=== PATIENT | male | born 1985 | race Caucasian/White ===

== ENCOUNTER 2020-07-27 15:22 | Emergency (ER) | payer OTHER ==
[~2020-07-27] VITALS: Ht 182.9 cm; Wt 113.4 kg
[2020-07-27 16:34] VITALS: BP 126/61
--- NOTE | 2020-07-27 16:34 | NUR ---
COVID SWAB, FLU SWAB DONE.
--- NOTE | 2020-07-27 18:11 | NUR ---
C/O COUGH, SOB, ZIEGLER, CHILLS X 5 DAYS. SON HAD COVID TESTED +.
--- NOTE | 2020-07-27 18:15 | NUR ---
Patient discharged with v/s stable. Written and verbal after care instructions given and explained. Patient alert, oriented and verbalized understanding of instructions. Ambulatory with steady gait. All questions addressed prior to discharge. ID band removed. Patient advised to follow up with PMD. Rx of ZOFRAN, ALBUTEROL & TYLENOL, TESSALON given. Patient educated on indication of medication including possible reaction and side effects. Opportunity to ask questions provided and answered.
[2020-07-27 18:18] VITALS: BP 126/61
--- NOTE | 2020-07-29 13:15 | NUR ---
+ covid result received from lab. Copy given to infection control
== END 2020-07-27 18:15 | disposition home or self-care (01) ==
LOC: MED 15:22
DX: U07.1 COVID-19 (principal)
CPT/HCPCS: 87804; 99283; U0003